=== PATIENT | male | born 1995 | race Caucasian/White ===

== ENCOUNTER → 2017-07-16 | Outpatient (CLI) | payer BC ==
--- NOTE | 2017-07-17 09:20 | MRI ---
MRI right elbow without contrast Indication: Elbow pain while lifting weights Technique: Multiplanar, multi sequence imaging of the right elbow without IV contrast administration. Findings: There is mild bone marrow edema within the medial humeral epicondyle with surrounding soft tissue swelling consistent with medial epicondylitis. There is no high-grade tearing of the common fl exor tendons of the right elbow. The adjacent ulnar collateral ligament is normal. The lateral ulnar collateral ligament an annular ligaments are intact . There is no abnormal signal w ithin the common extensor tendons. The lateral humeral epicondyle is normal in signal . The the radio capitellar and ulnohumeral joint spaces demonstrate no malalignment or cartilage thinning . No subcho ndral marrow edema within either. Small joint effusion is noted within the right elbow . Triceps, biceps tendon and brachialis tendons are normal in signal . The ulnar nerve is normal in sig nal and position. Impression: 1.Edema within the medial humeral epicondyle with small amount of surrounding soft tissue swelling co nsistent with acute medial epicondylitis . No high-grade tearing of the common flexor tendons. The ul sindi collateral ligament is normal. 2. The biceps, triceps and brachialis tendons are normal. Reported By:
== END ==
LOC: RAD 15:40
PROVIDERS: ATTEND Specialist
DX: M77.8 Other enthesopathies, not elsewhere classified (principal); R60.0 Localized edema
CPT/HCPCS: 73221